=== PATIENT | male | born 1955 | race Caucasian/White ===

== ENCOUNTER → 2017-03-25 | Outpatient (CLI) | payer OTHER ==
[~2017-03-25] MED LIST: AMLODIPINE10 MG; DAYPRO600 M1 PO; KEFLEX500 MG PO; LISINOPRIL40 MG; LOVASTATIN10 MG; MOTRIN800 MG PO; OMEPRAZOLE20 MG PO; PERCOCET 325 MG1 TA7 PO; PROPRANOLOL HC120 M1; PROPRANOLOL HC120 MG PO; ROBAXIN750 MG PO; SKELAXIN800 MG PO; VICODIN ES 7501 TA1 PO
[2017-03-25 11:46] LABS: BASO % 0.4 % (0.0-1.0); EOS # 0.2 10*3/uL (0.0-0.4); EOS % 1.8 % (1.0-4.0); HEMATOCRIT 44.9 % (42.0-52.0); HEMOGLOBIN 15.2 g/dl (14.0-18.0); LYMPH # 1.8 10*3/uL (1.3-4.4); LYMPH % 16.5 % (27.0-41.0); MEAN CORPUSCULAR HGB 31.5 pg (27.0-31.0); MEAN CORPUSCULAR HGB CONC 33.9 g/dl (33.0-37.0); MONO # 0.7 10*3/uL (0.1-1.0); MONO % 6.7 % (3.0-9.0); NEUT # 8.1 10*3/uL (2.3-7.9); NEUT % 74.2 % (47.0-73.0); PLATELET COUNT AUTOMATED 259 10*3/uL (130-400); RED BLOOD COUNT 4.83 10*6/uL (4.50-5.90); WHITE BLOOD COUNT 10.9 10*3/uL (4.8-10.8)
[2017-03-25 12:32] LABS: ALBUMIN 3.4 gm/dl (3.1-4.5); BUN 12 mg/dl (7-24); CHLORIDE 98 mmol/L (98-107); CHOLESTEROL 177 mg/dL (<200); CREATININE 1.01 mg/dL (0.70-1.30); POTASSIUM 4.1 mmol/L (3.5-5.1); SGOT/AST 17 IU/L (3-35); SGPT/ALT 24 U/L (12-78); SODIUM 137 mmol/L (136-145); TRIGLYCERIDES 264 mg/dl (<150); VLDL CHOLESTEROL 53 mg/dL (6-40)
[2017-03-25 12:38] LABS: ALKALINE PHOSPHATASE 106 U/L (45-117); FREE T4 0.98 ng/dl (0.76-1.46); HDL CHOLESTEROL 50 mg/dl (40-60); LDL CHOLESTEROL 74 mg/dL (9-159); TOTAL PROTEIN 7.2 gm/dL (6.4-8.2); VITAMIN D, 25-HYDROXY 28.6 ng/mL (30-100)
== END | disposition home or self-care (01) ==
LOC: LAB 11:19
PROVIDERS: Internal Medicine
DX: Z00.01 Encounter for general adult medical examination with abnormal findings (principal); Z13.21 Encounter for screening for nutritional disorder; Z13.220 Encounter for screening for lipoid disorders; Z13.1 Encounter for screening for diabetes mellitus; E78.2 Mixed hyperlipidemia; R53.81 Other malaise; E55.9 Vitamin D deficiency, unspecified

== ENCOUNTER → 2018-09-21 | Outpatient (CLI) | payer OTHER | END | disposition home or self-care (01) | LOC: US 15:01 | DX: R60.0 Localized edema (principal) ==

== ENCOUNTER → 2018-10-12 | Outpatient (CLI) | payer OTHER | END | disposition home or self-care (01) | LOC: ORTHO 00:35 | DX: M51.36 Other intervertebral disc degeneration, lumbar region (principal); M25.78 Osteophyte, vertebrae; M25.551 Pain in right hip ==

== ENCOUNTER → 2018-11-30 | Outpatient (CLI) | payer OTHER | END | disposition home or self-care (01) | LOC: MRI 13:33 | DX: M48.07 Spinal stenosis, lumbosacral region (principal); M51.36 Other intervertebral disc degeneration, lumbar region; M47.816 Spondylosis without myelopathy or radiculopathy, lumbar region ==

== ENCOUNTER → 2019-10-20 | Outpatient (CLI) | payer MEDICARE ==
[2019-10-20 09:23] LABS: BASO % 0.4 % (0.0-1.0); EOS # 0.2 10*3/uL (0.0-0.4); EOS % 2.1 % (1.0-4.0); HEMATOCRIT 41.6 % (42.0-52.0); LYMPH # 1.6 10*3/uL (1.3-4.4); LYMPH % 14.5 % (27.0-41.0); MEAN CELL VOLUME 92.4 fl (80.0-94.0); MEAN CORPUSCULAR HGB 30.7 pg (27.0-31.0); MEAN CORPUSCULAR HGB CONC 33.2 g/dl (33.0-37.0); MONO # 0.8 10*3/uL (0.1-1.0); MONO % 7.1 % (3.0-9.0); NEUT # 8.2 10*3/uL (2.3-7.9); NEUT % 75.4 % (47.0-73.0); PLATELET COUNT AUTOMATED 277 10*3/uL (130-400); WHITE BLOOD COUNT 10.9 10*3/uL (4.8-10.8)
[2019-10-20 09:52] LABS: ALBUMIN 3.4 gm/dl (3.1-4.5); BUN 12 mg/dl (7-24); CHLORIDE 102 mmol/L (98-107); CREATININE 0.98 mg/dL (0.70-1.30); POTASSIUM 4.2 mmol/L (3.5-5.1); SGPT/ALT 19 U/L (12-78); SODIUM 137 mmol/L (136-145)
[2019-10-20 10:00] LABS: ALKALINE PHOSPHATASE 93 U/L (45-117); CHOLESTEROL 147 mg/dL (<200); CPK 55 U/L (39-308); FREE T4 1.08 ng/dl (0.76-1.46); HDL CHOLESTEROL 42 mg/dl (40-60); LDL CHOLESTEROL 82 mg/dL (9-159); SGOT/AST 16 IU/L (3-35); TOTAL PROTEIN 7.3 gm/dL (6.4-8.2); TRIGLYCERIDES 116 mg/dl (<150); VLDL CHOLESTEROL 23 mg/dL (6-40)
[2019-10-20 10:36] LABS: VITAMIN D, 25-HYDROXY 48.3 ng/mL (30-100)
== END | disposition home or self-care (01) ==
LOC: LAB 08:56
PROVIDERS: Internal Medicine
DX: Z12.5 Encounter for screening for malignant neoplasm of prostate (principal); Z00.00 Encounter for general adult medical examination without abnormal findings; I10 Essential (primary) hypertension; E78.2 Mixed hyperlipidemia; E11.9 Type 2 diabetes mellitus without complications; E55.9 Vitamin D deficiency, unspecified

== ENCOUNTER → 2020-09-13 | Outpatient (CLI) | payer MEDICARE ==
[2020-09-13 12:23] LABS: BASO % 0.3 % (0.0-1.0); EOS # 0.2 10*3/uL (0.0-0.4); EOS % 2.1 % (1.0-4.0); HEMATOCRIT 41.4 % (42.0-52.0); LYMPH # 1.6 10*3/uL (1.3-4.4); LYMPH % 18.1 % (27.0-41.0); MEAN CELL VOLUME 94.7 fl (80.0-94.0); MEAN CORPUSCULAR HGB 31.4 pg (27.0-31.0); MEAN CORPUSCULAR HGB CONC 33.1 g/dl (33.0-37.0); MEAN PLATELET VOLUME 9.9 fl (9.6-12.3); MONO # 0.7 10*3/uL (0.1-1.0); MONO % 7.9 % (3.0-9.0); NEUT # 6.4 10*3/uL (2.3-7.9); NEUT % 71.2 % (47.0-73.0); PLATELET COUNT AUTOMATED 260 10*3/uL (130-400); RED BLOOD COUNT 4.37 10*6/uL (4.50-5.90); RED CELL DISTRI WIDTH 13.3 % (0-14.5)
[2020-09-13 12:41] LABS: ALBUMIN 3.3 gm/dl (3.1-4.5); BUN 16 mg/dl (7-24); CHLORIDE 105 mmol/L (98-107); CHOLESTEROL 164 mg/dL (<200); CPK 92 U/L (39-308); CREATININE 0.84 mg/dL (0.70-1.30); POTASSIUM 4.1 mmol/L (3.5-5.1); SGOT/AST 11 IU/L (3-35); SGPT/ALT 17 U/L (12-78); SODIUM 137 mmol/L (136-145); TOTAL PROTEIN 7.3 gm/dL (6.4-8.2); TRIGLYCERIDES 110 mg/dl (<150)
[2020-09-13 12:46] LABS: ALKALINE PHOSPHATASE 88 U/L (45-117); FREE T4 0.99 ng/dl (0.76-1.46); LDL CHOLESTEROL 97 mg/dL (9-159)
[2020-09-13 13:48] LABS: VITAMIN D, 25-HYDROXY 44.7 ng/mL (30-100)
== END | disposition home or self-care (01) ==
LOC: LAB 11:51
PROVIDERS: ATTEND Internal Medicine
DX: Z12.5 Encounter for screening for malignant neoplasm of prostate (principal); I10 Essential (primary) hypertension; E78.2 Mixed hyperlipidemia; E55.9 Vitamin D deficiency, unspecified; E03.9 Hypothyroidism, unspecified; E11.9 Type 2 diabetes mellitus without complications; Z73.9 Problem related to life management difficulty, unspecified

== ENCOUNTER 2021-01-21 13:05 | Emergency (ER) | payer MEDICARE ==
[2021-01-21 13:34] LABS: BASO % 0.2 % (0.0-1.0); EOS # 0.1 10*3/uL (0.0-0.4); EOS % 0.7 % (1.0-4.0); HEMATOCRIT 39.9 % (42.0-52.0); LYMPH # 1.4 10*3/uL (1.3-4.4); LYMPH % 10.5 % (27.0-41.0); MEAN CELL VOLUME 92.6 fl (80.0-94.0); MEAN CORPUSCULAR HGB 31.1 pg (27.0-31.0); MEAN CORPUSCULAR HGB CONC 33.6 g/dl (33.0-37.0); MEAN PLATELET VOLUME 9.9 fl (9.6-12.3); MONO # 1.4 10*3/uL (0.1-1.0); MONO % 10.1 % (3.0-9.0); NEUT # 10.7 10*3/uL (2.3-7.9); NEUT % 78.1 % (47.0-73.0); PLATELET COUNT AUTOMATED 221 10*3/uL (130-400); RED BLOOD COUNT 4.31 10*6/uL (4.50-5.90); WHITE BLOOD COUNT 13.7 10*3/uL (4.8-10.8)
[2021-01-21 13:50] LABS: ALKALINE PHOSPHATASE 79 U/L (45-117); BUN 13 mg/dl (7-24); CHLORIDE 99 mmol/L (98-107); CREATININE 1.17 mg/dL (0.70-1.30); POTASSIUM 3.6 mmol/L (3.5-5.1); SGOT/AST 13 IU/L (3-35); SGPT/ALT 15 U/L (12-78); SODIUM 134 mmol/L (136-145); TOTAL PROTEIN 7.3 gm/dL (6.4-8.2)
[2021-01-21 13:52] LABS: TROPONIN I < 0.015 ng/ml (<0.045)
[2021-01-21] MEDS ORDERED: VOLTAREN50 M1 PO (16:05)
== END 2021-01-21 16:11 | disposition home or self-care (01) ==
LOC: ED 13:05
PROVIDERS: Emergency Medicine
DX: M10.9 Gout, unspecified (principal); Z79.899 Other long term (current) drug therapy

== ENCOUNTER → 2022-07-06 | Outpatient (CLI) | payer MEDICARE ==
[~2022-07-06] MED LIST changes: +VOLTAREN50 M1 PO
[2022-07-06 10:52] LABS: BASO % 0.4 % (0.0-1.0); EOS # 0.2 10*3/uL (0.0-0.4); EOS % 2.2 % (1.0-4.0); HEMATOCRIT 43.9 % (42.0-52.0); LYMPH # 1.4 10*3/uL (1.3-4.4); LYMPH % 14.8 % (27.0-41.0); MEAN CELL VOLUME 94.4 fl (80.0-94.0); MEAN CORPUSCULAR HGB 31.2 pg (27.0-31.0); MEAN PLATELET VOLUME 9.9 fl (9.6-12.3); MONO # 0.7 10*3/uL (0.1-1.0); MONO % 7.8 % (3.0-9.0); NEUT # 7.1 10*3/uL (2.3-7.9); NEUT % 74.4 % (47.0-73.0); PLATELET COUNT AUTOMATED 298 10*3/uL (130-400); RED BLOOD COUNT 4.65 10*6/uL (4.50-5.90); RED CELL DISTRI WIDTH 13.3 % (0-14.5); WHITE BLOOD COUNT 9.5 10*3/uL (4.8-10.8)
[2022-07-06 11:31] LABS: VITAMIN D, 25-HYDROXY 41.3 ng/mL (30-100)
[2022-07-06 12:19] LABS: ALKALINE PHOSPHATASE 105 U/L (46-116); BUN 12 mg/dl (9-23); CHLORIDE 100 mmol/L (98-107); CHOLESTEROL 154 mg/dL (<200); CPK 60 U/L (34-171); FREE T4 1.24 ng/dl (0.89-1.76); LDL CHOLESTEROL 84 mg/dL (9-159); POTASSIUM 4.2 mmol/L (3.4-5.1); SGPT/ALT 11 U/L (10-49); THYROID STIM HORMONE (HS) 2.472 uIU/ml (0.550-4.780); TOTAL PROTEIN 6.9 gm/dL (6.0-8.0); TRIGLYCERIDES 132 mg/dl (<150)
== END | disposition home or self-care (01) ==
LOC: LAB 10:24
PROVIDERS: ATTEND Internal Medicine
DX: I10 Essential (primary) hypertension (principal); E11.9 Type 2 diabetes mellitus without complications; E78.2 Mixed hyperlipidemia; E55.9 Vitamin D deficiency, unspecified; Z12.5 Encounter for screening for malignant neoplasm of prostate; Z13.0 Encounter for screening for diseases of the blood and blood-forming organs and certain disorders involving the immune mechanism; Z13.1 Encounter for screening for diabetes mellitus; Z13.21 Encounter for screening for nutritional disorder; Z13.220 Encounter for screening for lipoid disorders; Z13.228 Encounter for screening for other metabolic disorders; Z13.6 Encounter for screening for cardiovascular disorders; Z13.89 Encounter for screening for other disorder; Z13.9 Encounter for screening, unspecified

== ENCOUNTER → 2022-11-12 | Outpatient (CLI) | payer MEDICARE | END | disposition home or self-care (01) | LOC: CARD 09-30 08:30 → LAB 00:30 → CARD 00:30 | PROVIDERS: ATTEND Internal Medicine | DX: Z13.0 Encounter for screening for diseases of the blood and blood-forming organs and certain disorders involving the immune mechanism (principal); Z13.1 Encounter for screening for diabetes mellitus; Z13.21 Encounter for screening for nutritional disorder; Z13.220 Encounter for screening for lipoid disorders; Z13.29 Encounter for screening for other suspected endocrine disorder; E11.9 Type 2 diabetes mellitus without complications; Z13.6 Encounter for screening for cardiovascular disorders; Z13.89 Encounter for screening for other disorder; Z13.9 Encounter for screening, unspecified; E78.2 Mixed hyperlipidemia; E55.9 Vitamin D deficiency, unspecified; I11.0 Hypertensive heart disease with heart failure; I50.20 Unspecified systolic (congestive) heart failure; R06.02 Shortness of breath ==

== ENCOUNTER 2023-02-05 14:50 | Emergency (ER) | payer OTHER, MEDICARE ==
[~2023-02-05] VITALS: Ht 182.8 cm; Wt 127.0 kg
== END 2023-02-05 17:58 | disposition home or self-care (01) ==
LOC: ED 14:50
DX: S16.1XXA Strain of muscle, fascia and tendon at neck level, initial encounter (principal); S29.012A Strain of muscle and tendon of back wall of thorax, initial encounter; I10 Essential (primary) hypertension; E78.00 Pure hypercholesterolemia, unspecified; Z98.890 Other specified postprocedural states; Z90.89 Acquired absence of other organs; V89.2XXA Person injured in unspecified motor-vehicle accident, traffic, initial encounter; Y93.89 Activity, other specified; Y92.410 Unspecified street and highway as the place of occurrence of the external cause; Y99.0 Civilian activity done for income or pay

== ENCOUNTER → 2023-08-11 | Outpatient (CLI) | payer MEDICARE ==
[~2023-08-11] MED LIST changes: +ALLOPURINOL300 MG PO; +DICYCLOMINE HYD20 MG PO; +MOUNJARO5 MG/0.51 SQ; +PROPRANOLOL HY120 MG PO; +ZESTORETIC 20-1 EACH PO
[2023-08-11 11:02] LABS: BASO % 0.3 % (0.0-1.0); EOS # 0.3 10*3/uL (0.0-0.4); EOS % 2.2 % (1.0-4.0); HEMATOCRIT 47.1 % (42.0-52.0); LYMPH # 1.9 10*3/uL (1.3-4.4); LYMPH % 15.9 % (27.0-41.0); MEAN CELL VOLUME 97.3 fl (80.0-94.0); MEAN CORPUSCULAR HGB 32.9 pg (27.0-31.0); MEAN CORPUSCULAR HGB CONC 33.8 g/dl (33.0-37.0); MEAN PLATELET VOLUME 9.6 fl (9.6-12.3); MONO % 8.5 % (3.0-9.0); NEUT # 8.8 10*3/uL (2.3-7.9); NEUT % 72.5 % (47.0-73.0); PLATELET COUNT AUTOMATED 303 10*3/uL (130-400); RED BLOOD COUNT 4.84 10*6/uL (4.50-5.90); RED CELL DISTRI WIDTH 14.4 % (0-14.5); WHITE BLOOD COUNT 12.1 10*3/uL (4.8-10.8)
[2023-08-11 11:32] LABS: FREE T4 1.46 ng/dl (0.89-1.76); POTASSIUM 4.1 mmol/L (3.4-5.1); TOTAL PROTEIN 6.8 gm/dL (6.0-8.0); VITAMIN D, 25-HYDROXY 68.7 ng/mL (30-100)
== END | disposition home or self-care (01) ==
LOC: LAB 10:38
PROVIDERS: ATTEND Internal Medicine
DX: Z12.5 Encounter for screening for malignant neoplasm of prostate (principal); Z13.0 Encounter for screening for diseases of the blood and blood-forming organs and certain disorders involving the immune mechanism; Z13.1 Encounter for screening for diabetes mellitus; Z13.21 Encounter for screening for nutritional disorder; Z13.220 Encounter for screening for lipoid disorders; Z13.228 Encounter for screening for other metabolic disorders; Z13.29 Encounter for screening for other suspected endocrine disorder; Z13.6 Encounter for screening for cardiovascular disorders; Z13.89 Encounter for screening for other disorder; Z13.9 Encounter for screening, unspecified; I10 Essential (primary) hypertension; M16.11 Unilateral primary osteoarthritis, right hip; G25.81 Restless legs syndrome; E11.9 Type 2 diabetes mellitus without complications

== ENCOUNTER → 2023-08-12 | Outpatient (CLI) | payer MEDICARE | END | disposition home or self-care (01) | LOC: LAB 12:49 | PROVIDERS: ATTEND Internal Medicine | DX: Z13.1 Encounter for screening for diabetes mellitus (principal); E11.9 Type 2 diabetes mellitus without complications; M16.11 Unilateral primary osteoarthritis, right hip; Z13.0 Encounter for screening for diseases of the blood and blood-forming organs and certain disorders involving the immune mechanism; G25.81 Restless legs syndrome; Z13.220 Encounter for screening for lipoid disorders; Z13.228 Encounter for screening for other metabolic disorders; Z13.29 Encounter for screening for other suspected endocrine disorder; Z13.6 Encounter for screening for cardiovascular disorders; Z13.89 Encounter for screening for other disorder; Z13.9 Encounter for screening, unspecified ==

== ENCOUNTER → 2024-01-28 | Outpatient (CLI) | payer MEDICARE ==
[~2024-01-28] MED LIST changes: +MOUNJARO10 MG/0.1 SQ
[2024-01-28 17:09] LABS: BUN 11 mg/dl (9-23); CHLORIDE 103 mmol/L (98-107); POTASSIUM 3.9 mmol/L (3.4-5.1)
== END | disposition home or self-care (01) ==
LOC: LAB 16:18
PROVIDERS: ATTEND Internal Medicine
DX: I10 Essential (primary) hypertension (principal)

== ENCOUNTER 2024-01-31 01:50 | Emergency (ER) | payer MEDICARE ==
[~2024-01-31] VITALS: Ht 177.8 cm; Wt 108.9 kg
[~2024-01-31 01:50] MED LIST changes: -MOUNJARO10 MG/0.1 SQ
[2024-01-31] MEDS ORDERED: MOUNJARO10 MG/0.1 SQ (02:00)
[2024-01-31 03:50] LABS: BASO % 0.4 % (0.0-1.0); EOS # 0.3 10*3/uL (0.0-0.4); HEMATOCRIT 44.1 % (42.0-52.0); LYMPH # 1.5 10*3/uL (1.3-4.4); LYMPH % 12.9 % (27.0-41.0); MEAN CELL VOLUME 97.8 fl (80.0-94.0); MEAN CORPUSCULAR HGB 32.6 pg (27.0-31.0); MEAN CORPUSCULAR HGB CONC 33.3 g/dl (33.0-37.0); MEAN PLATELET VOLUME 9.6 fl (9.6-12.3); MONO # 0.8 10*3/uL (0.1-1.0); MONO % 6.9 % (3.0-9.0); NEUT # 8.6 10*3/uL (2.3-7.9); NEUT % 76.6 % (47.0-73.0); PLATELET COUNT AUTOMATED 239 10*3/uL (130-400); RED BLOOD COUNT 4.51 10*6/uL (4.50-5.90); RED CELL DISTRI WIDTH 13.3 % (0-14.5); WHITE BLOOD COUNT 11.2 10*3/uL (4.8-10.8)
[2024-01-31] MEDS ORDERED: methylPREDNISolone sod succ 125 MG VIAL IV ONE (03:50)
[2024-01-31] MEDS ORDERED: Metoclopramide Hydrochloride 10 MG/2 ML VIAL IV ONE (03:50)
[2024-01-31] MEDS ORDERED: diphenhydrAMINE hydrochloride 50 MG/ML VIAL IV ONE (03:50)
[2024-01-31 04:09] LABS: BUN 10 mg/dl (9-23); CHLORIDE 103 mmol/L (98-107); POTASSIUM 3.9 mmol/L (3.4-5.1)
== END 2024-01-31 06:18 | disposition home or self-care (01) ==
LOC: ED 01:50
PROVIDERS: Emergency Medicine
DX: R51.9 Headache, unspecified (principal); M10.9 Gout, unspecified; I10 Essential (primary) hypertension; E78.00 Pure hypercholesterolemia, unspecified; Z90.89 Acquired absence of other organs

== ENCOUNTER → 2024-06-26 | Outpatient (CLI) | payer MEDICARE ==
[~2024-06-26] MED LIST changes: +MOUNJARO10 MG/0.1 SQ
[2024-06-26 12:25] LABS: BASO % 0.3 % (0.0-1.0); EOS # 0.1 10*3/uL (0.0-0.4); EOS % 1.3 % (1.0-4.0); MEAN CORPUSCULAR HGB CONC 33.7 g/dl (33.0-37.0); MEAN PLATELET VOLUME 10.1 fl (9.6-12.3); MONO # 0.6 10*3/uL (0.1-1.0); MONO % 8.1 % (3.0-9.0); PLATELET COUNT AUTOMATED 238 10*3/uL (130-400); RED BLOOD COUNT 4.84 10*6/uL (4.50-5.90); RED CELL DISTRI WIDTH 13.8 % (0-14.5); WHITE BLOOD COUNT 7.6 10*3/uL (4.8-10.8)
[2024-06-26 12:51] LABS: ALKALINE PHOSPHATASE 80 U/L (46-116); BUN 5 mg/dl (9-23); CHLORIDE 103 mmol/L (98-107); CHOLESTEROL 157 mg/dL (<200); CPK 60 U/L (34-171); FREE T4 1.48 ng/dl (0.89-1.76); LDL CHOLESTEROL 83 mg/dL (9-159); POTASSIUM 3.6 mmol/L (3.4-5.1); SGPT/ALT 13 U/L (5-49); TOTAL PROTEIN 6.8 gm/dL (6.0-8.0); TRIGLYCERIDES 93 mg/dl (<150)
[2024-06-26 12:52] LABS: VITAMIN D, 25-HYDROXY 65.1 ng/mL (30-100)
== END | disposition home or self-care (01) ==
LOC: LAB 11:51
PROVIDERS: ATTEND Internal Medicine
DX: Z12.5 Encounter for screening for malignant neoplasm of prostate (principal); I12.9 Hypertensive chronic kidney disease with stage 1 through stage 4 chronic kidney disease, or unspecified chronic kidney disease; N18.32 Chronic kidney disease, stage 3b; R74.8 Abnormal levels of other serum enzymes; R97.20 Elevated prostate specific antigen [PSA]; E53.9 Vitamin B deficiency, unspecified; E55.9 Vitamin D deficiency, unspecified; R53.83 Other fatigue; E78.2 Mixed hyperlipidemia; I95.9 Hypotension, unspecified; R73.03 Prediabetes